=== PATIENT | female | born 1995 | race Caucasian/White ===

== ENCOUNTER 2024-12-25 00:16 | Emergency (ER) | payer SELFPAY ==
[2024-12-25 00:36] VITALS: BP 110/78
[2024-12-25 01:01] VITALS: BMI 24.7
--- NOTE | 2024-12-25 01:10 | ED.GENMED ---
History of Present Illness
General
Chief Complaint: Abdominal Pain
Source: patient
Exam Limitations: none
Time Seen by Provider: 12/25/24 00:56
History of Present Illness
History of Present Illness:
29-year-old female presents complaining the onset of right upper quadrant abdominal pain about 3 hours prior to my exam. The pain is constant sharp in nature does not radiate to the back but is associated with nausea but no vomiting. She admits to
ingesting several edibles this evening. She states she took more than usual. No fevers. No prior abdominal surgical history. She does not take any prescribed medications. No chest pain or shortness of breath. The pain is not pleuritic.
Phy Exam
Physical Exam
Physical Exam:
General: Well-appearing but uncomfortable female no acute respiratory distress
HEENT: Normal cephalic atraumatic
Heart: Regular rate and rhythm
Lungs: Clear no wheeze
Abdomen is soft but tender to the right upper quadrant mild guarding nondistended
Extremities: No cyanosis
Skin warm no rash
Course
Orders/Labs/Results
Orders:
Orders
12/25/24 01:06
0.9% Sodium Chloride 1000 ml [Nss] 1,000 ml IV BOLUS
Ketorolac [Toradol] 15 mg IV NOW STA
Ondansetron Injectable [Zofran] 4 mg IV NOW STA
Test Result ONCE
US Abdomen Complete/Upper Urgent
Comment:
Reason For Exam: ruq pain
12/25/24 01:15
Complete Blood Count/With Diff Urgent
Comprehensive Metabolic Panel Urgent
HCG, Serum Qualitative Screen Urgent
Lipase Urgent
Abnormal Lab Results
12/25/24
01:15
RBC 4.01 L 10^6/uL
(4.20-5.40)
Hct 34.9 L %
(37.0-47.0)
Absolute Lymphs (auto) 1.1 L 10^3/uL
(1.2-3.4)
Neutrophils % 77.9 H %
(42.2-75.2)
Lymphocytes % 15.3 L %
(20.5-51.1)
Glucose 106 H mg/dl
(70-99)
12/25/24 01:15
12/25/24 01:15
Vital Signs
Initial and Last Documented VS:
Initial Vital Signs
Temp Pulse Resp BP Pulse Ox
99.9 F 127 20 110/78 98
12/25/24 00:36 12/25/24 00:36 12/25/24 00:36 12/25/24 00:36 12/25/24 00:36
Last Documented Vital Signs
Temp Pulse Resp BP Pulse Ox
98.3 F 96 14 110/78 98
12/25/24 01:22 12/25/24 01:22 12/25/24 01:22 12/25/24 00:36 12/25/24 01:22
MDM/Problems Addressed
Differential Diagnosis Includes:
Right upper abdominal pain. Consider gastritis versus pancreatitis with biliary colic versus adverse effect to edible ingestion
Check labs and test. Will treat with Zofran fluids Toradol. Ultrasound pending
*Pulse Oximetry
SaO2: 99
Oxygen Mode of Delivery: Room air
Patient hypoxic: no
*Critical Care Note
Total Time (30-74mins, 75-104mins- exclusive of procedures): Not Applicable
Update Note
Update Note:
US negative for acute finding labs reviewed without significant finding. Patient feeling much better after treatment here I suspect abdominal discomfort may be related to ingestion of Gummies she had earlier tonight. Now feeling better. Stable
for discharge
ED Attending Note
-
Portions of this chart may have been created with voice recognition software.� Occasional wrong word or��sound alike� substitutions may have occurred due to the inherent limitations of voice recognition software.
Discharge Plan
Departure
Patient Disposition: Home (Routine Discharge)
Date of Disposition: 12/25/24
Time of Disposition: 02:30
Patient with high blood pressure during this ER visit?: No
Discharge Problem:
Abdominal pain
Instructions: Abdominal Pain
Prescriptions:
No Action
albuterol sulfate 90 MCG/PUFF HFA aerosol inhaler
1 - 2 puff inhalation R Q4HPRN PRN (Reason: wheezing) Qty: 1 0RF
Activity Restrictions/Additional Instructions:
Rest. Drink plenty of clear liquids. Return if worse otherwise follow-up with your doctor
Interventions
Interventions:
*Risk Screen - Suicide Last Done: 12/25/24 00:36
*General Assessment Last Done: 12/25/24 00:36
*Neglect/Abuse Screening Last Done: 12/25/24 00:36
*ED- Fall Risk Assessment Last Done: 12/25/24 00:36
*ED COVID-19 Vaccine History Last Done: 12/25/24 00:36
*ED Influenza Vaccine History Last Done: 12/25/24 00:36
ZX-Ozfxys-Cstzvqbchf Assessment Last Done: 12/25/24 01:21
Discharge Date and Time
Print Language: [id number]
[2024-12-25] MEDS: TORADOL 15 MG IV (01:16)
[2024-12-25] MEDS: NSS 1000 IV (01:16)
[2024-12-25] MEDS: ZOFRAN 4 MG IV (01:16)
[2024-12-25 01:31] LABS: Hematocrit 34.9 % (37.0-47.0); Hemoglobin 12.3 g/dL (12.0-16.0); Mean Corp Hgb Conc. 35.2 g/dL (33.0-37.0); Mean Corpuscular Volume 87.0 fL (81.0-99.0); Nucleated Red Blood Cells % 0 %; Platelet Count 263 10^3/uL (130-400); Red Cell Dist. Width 11.7 % (11.5-14.5)
[2024-12-25 01:38] LABS: HCG, Serum Qualitative Screen Negative
[2024-12-25 01:42] LABS: ALT (SGPT) 15 U/L (0-35); AST (SGOT) 19 U/L (14-36); Albumin 4.8 g/dl (3.5-5.0); Alkaline Phosphatase 53 U/L (38-126); Blood Urea Nitrogen 8 mg/dl (7-17); Calcium 9.1 mg/dl (8.4-10.2); Carbon Dioxide 22 mmol/L (22-30); Chloride 107 mmol/L (98-107); Estimated Creatinine Clearance 82 ml/min; Glucose 106 mg/dl (70-99); Lipase 33 U/L (23-300); Potassium 4.1 mmol/L (3.5-5.1); Sodium 137 mmol/L (135-145); Total Protein 7.5 g/dl (6.3-8.2); eGFR > 60.00
[2024-12-25 02:45] VITALS: BP 108/64
== END 2024-12-25 02:46 | disposition home or self-care (01) ==
LOC: EMR 00:16
PROVIDERS: Physician Assistant; EMERGENCY PHYSICIAN Emergency Medicine
DX: R10.11 Right upper quadrant pain (principal)
CPT/HCPCS: 76700; 80053; 83690; 84703; 85025; 96361; 96374; 96375; 99284